=== PATIENT | female | born 1955 | race Caucasian/White ===

== ENCOUNTER 2019-02-12 08:11 | Emergency (ER) | payer MEDICARE, OTHER ==
[2019-02-12 08:46] LABS: ABSOLUTE BASOPHILS # (AUTO) 0.1 10^3/uL (0.0-0.2); ABSOLUTE EOSINOPHILS # (AUTO) 0.2 10^3/uL (0.0-0.6); ABSOLUTE LYMPHOCYTES (AUTO) 3.1 10^3/uL (0.5-4.7); ABSOLUTE MONOCYTES (AUTO) 0.7 10^3/uL (0.1-1.4); ABSOLUTE NEUT (AUTO) 5.5 10^3/uL (1.7-8.2); BASOPHILS % (AUTO) 0.7 % (0-2); EOSINOPHILS % (AUTO) 2.4 % (0-6); HEMATOCRIT 42.7 % (36.0-47.0); HEMOGLOBIN 14.5 g/dL (12.0-15.5); LYMPHOCYTES % (AUTO) 32.8 % (13-45); MEAN CORPUSCULAR HEMOGLOBIN 30.3 pg (27.0-33.4); MEAN CORPUSCULAR HGB CONC 33.9 g/dL (32.0-36.0); MEAN CORPUSCULAR VOLUME 89 fl (80-97); MONOCYTES % (AUTO) 6.8 % (3-13); PLATELET COUNT 189 10^3/uL (150-450); RED BLOOD COUNT 4.78 10^6/uL (3.72-5.28); RED CELL DISTRIBUTION WIDTH 14.6 % (11.5-14.0); SEGMENTED NEUTROPHILS % (AUTO) 57.3 % (42-78); TOTAL CELLS COUNTED % (AUTO) 100 %; WHITE BLOOD COUNT 9.6 10^3/uL (4.0-10.5)
[2019-02-12 09:09] LABS: ALBUMIN 3.8 g/dL (3.5-5.0); ALKALINE PHOSPHATASE 157 U/L (38-126); ANION GAP 10 (5-19); ASPARTATE AMINO TRANSFERASE 36 U/L (14-36); BILIRUBIN,DIRECT 0.2 mg/dL (0.0-0.4); BILIRUBIN,TOTAL 0.5 mg/dL (0.2-1.3); BLOOD UREA NITROGEN 19 mg/dL (7-20); CALCIUM 9.3 mg/dL (8.4-10.2); CARBON DIOXIDE 25 mmol/L (22-30); CHLORIDE 105 mmol/L (98-107); GLUCOSE 125 mg/dL (75-110); POTASSIUM 4.2 mmol/L (3.6-5.0)
[2019-02-12] MEDS ORDERED: LIDOCAINE 2% VISCOUS SOLN 20 ML UDCUP PO ONE ×2 (09:34→11:46)
[2019-02-12] MEDS ORDERED: MAG HYDROX/AL HYDROX/SIMETH SUSP 30 ML UDCUP PO ONE ×2 (09:34→11:46)
--- NOTE | 2019-02-12 09:36 | ER Document Report ---
ED Medical Screen (RME) - General Chief Complaint: Abdominal Pain Stated Complaint: GASTRIC Time Seen by Provider: 02/12/19 09:26 Information source: Patient Notes: Patient presents complaining of epigastric pain that radiates through to her back that occurred on 2 separate episodes this morning after standing. Patient states that when she would change position but the pain would improve. Patient states that when she stands she would get lightheaded. Patient reports cough for the past several weeks. No nausea or vomiting. Patient denies any epigastric or chest pain symptoms at this time. Patient states she did take 4 baby aspirin at home and the pain started to improve. Patient does report [place]. hx: Diabetes, hypertension, DVT, hypothyroid I have greeted and performed a rapid initial assessment of this patient. A comprehensive ED assessment and evaluation of the patient, analysis of test results and completion of the medical decision making process will be conducted by additional ED providers. - Related Data Allergies/Adverse Reactions: No Known Allergies Allergy (Verified 02/12/19 08:23) Physical Exam - Vital signs Vitals: Temp Pulse Resp BP Pulse Ox 97.8 F 82 19 124/56 L 97 02/12/19 08:22 02/12/19 08:22 02/12/19 08:22 02/12/19 08:22 02/12/19 08:22 - Cardiovascular Rhythm: Regular Heart sounds: S1 appreciated, S2 appreciated - Abdominal Inspection: Morbidly Obese Tenderness: Nontender Course - Vital Signs Vital signs: Temp Pulse Resp BP Pulse Ox 97.8 F 82 19 124/56 L 97 02/12/19 08:22 02/12/19 08:22 02/12/19 08:22 02/12/19 08:22 02/12/19 08:22 - Laboratory Result Diagrams: 02/12/19 08:20 02/12/19 08:20 Laboratory results interpreted by me: 02/12/19 02/12/19 08:20 08:20 RDW 14.6 H Glucose 125 H Alkaline Phosphatase 157 H
--- NOTE | 2019-02-12 10:05 | RADIOLOGY REPORT (SQ) ---
EXAM DESCRIPTION: CHEST 2 VIEWS COMPLETED DATE/TIME: 02/12/2019 9:58 am REASON FOR STUDY: epig pain, dizziness COMPARISON: None. EXAM PARAMETERS: NUMBER OF VIEWS: two views TECHNIQUE: Digital Frontal and Lateral radiographic views of the chest acquired. RADIATION DOSE: NA LIMITATIONS: none FINDINGS: LUNGS AND PLEURA: No opacities, masses or pneumothorax. No pleural effusion. MEDIASTINUM AND HILAR STRUCTURES: No masses or contour abnormalities. HEART AND VASCULAR STRUCTURES: Heart normal size. No evidence for failure. BONES: No acute findings. HARDWARE: None in the chest. OTHER: No other significant finding. IMPRESSION: NO ACUTE RADIOGRAPHIC FINDING IN THE CHEST. TECHNICAL DOCUMENTATION: JOB ID: [id number] [facility]- All Rights Reserved Reading location - IP/workstation name: [email or web address]
[2019-02-12 10:14] LABS: INTERNATIONAL RATION (INR) 1.84; PROTHROMBIN TIME 21.5 SEC (11.4-15.4)
--- NOTE | 2019-02-12 10:29 | ER Document Report ---
ED General - General Chief Complaint: Abdominal Pain Stated Complaint: GASTRIC Time Seen by Provider: 02/12/19 09:26 Primary Care Provider: SHANE KELLOGG MD [ACTIVE STAFF] - Follow up as needed EVANS FREITAS MD [ACTIVE STAFF] - Follow up as needed TRAVEL OUTSIDE OF THE [place] IN LAST 30 DAYS: No - HPI Notes: Patient is a 64-year-old female with a history of hypertension, diabetes, hypothyroidism, GERD, cholecystectomy, appendectomy, tubal ligation, obesity, DVT x2 with most recent 5 years ago and on Coumadin who presents complaining of sharp epigastric pain that occurred twice this morning that radiated to her back. Patient states that when she stood up and noticed a sharp pain to her epigastrium that resolved when she sat back down. She then tried to stand up again and noticed the same pain which then resolved on its own thereafter. Patient states that they only lasted for a brief time and were resolved when she changed positions. Patient states that since then she has been asymptomatic. She has been able to eat and drink without difficulty. She is urinating normally and having normal bowel movements. Denies drug allergies. No recent illness. No melena or hematochezia. Denies any headache, fever, neck pain, URI, sore throat, chest pain, palpitations, syncope, cough, shortness of breath, wheeze, dyspnea, nausea/vomiting/diarrhea, urinary retention, dysuria, hematuria, loss of control of bowel or bladder, numbness/tingling, saddle anesthesia, muscle paralysis/weakness, or rash. - Related Data Allergies/Adverse Reactions: No Known Allergies Allergy (Verified 02/12/19 08:23) Past Medical History - General Information source: Patient - Social History Smoking Status: Current Every Day Smoker Family History: Reviewed & Not Pertinent Patient has suicidal ideation: No Patient has homicidal ideation: No Review of Systems - Review of Systems -: Yes All other systems reviewed and negative Physical Exam - Vital signs Vitals: Temp Pulse Resp BP Pulse Ox 97.8 F 82 19 124/56 L 97 02/12/19 08:22 02/12/19 08:22 02/12/19 08:22 02/12/19 08:22 02/12/19 08:22 - Notes Notes: PHYSICAL EXAMINATION: GENERAL: Well-appearing, well-nourished and in no acute distress. Obese. HEAD: Atraumatic, normocephalic. EYES: Pupils equal round and reactive to light, extraocular movements intact, sclera anicteric, conjunctiva are normal. ENT: Nares patent and without discharge. oropharynx clear without exudates. No tonsilar hypertrophy or erythema. Moist mucous membranes. NECK: Normal range of motion, supple without lymphadenopathy LUNGS: Breath sounds clear to auscultation bilaterally and equal. No wheezes rales or rhonchi. HEART: Regular rate and rhythm without murmurs, rubs, gallops. ABDOMEN: Soft, nontender, nondistended abdomen. No guarding, no rebound. Normal bowel sounds present. No CVA tenderness bilaterally. Ortega neg. No lower abd tenderness. No obvious pulsatile mass noted. Musculoskeletal: FROM to passive/active. Strength 5+/5. Extremities: No cyanosis, clubbing, or edema b/l. Peripheral pulses 2+ and equal b/l. Capillary refill less than 3 seconds. No calf tenderness. NEUROLOGICAL: Cranial nerves grossly intact. Normal speech, normal gait. Normal sensory, motor exams PSYCH: Normal mood, normal affect. SKIN: Warm, Dry, normal turgor, no rashes or lesions noted. Course - Re-evaluation Re-evalutation: 02/12/19 Patient is an afebrile, well-hydrated, 64-year-old female who presents with resolved short incidence of epigastric abdominal pain x2 this morning and acute UTI. Vitals are acceptable without significant tachycardia, tachypnea, or hypoxia. PE is otherwise unremarkable. Patient's abdomen is soft and nontender throughout. Lungs are clear to auscultation bilaterally. The pains were there when she stood up and resolved when she change positions/sat back down. They have not recurred since then. Labs are unremarkable. Chest x-ray unremarkable. I did review possible CT imaging and/or ultrasound to further evaluate which patient declined at this time. Risk benefits reviewed. Patient aware of her decision. Pt has not had any CP, sob, or dyspnea. Low suspicion/risk for ACS, PE, pneumothorax, pericarditis, obvious dissection, acute appendicitis, bowel obstruction, acute cholecystitis, acute cholangitis, perforated diverticulitis, incarcerated hernia, pancreatitis, perforated ulcer, peritonitis, sepsis, pelvic inflammatory disease, tubo-ovarian abscess, ovarian torsion, or other systemic emergent condition at this time. Patient is aware that her condition can change from initial presentation and she needs to monitor symptoms closely and seek medical attention if any acute changes. Pt declined GI cocktail/meds as she has been asymptomatic since prior to arrival. Pt feeling better and would like to go home. Conservative measures otherwise for symptoms. Recheck with OBGYN in 1-2 days. Recheck with your PCM in 2-3 days. Consider consult with a visitor service assistant. Return to the ED with any worsening/concerning symptoms otherwise as reviewed in discharge. Patient is in agreement. - Vital Signs Vital signs: Temp Pulse Resp BP Pulse Ox 97.9 F 72 16 131/74 H 96 02/12/19 10:50 02/12/19 10:50 02/12/19 10:50 02/12/19 10:50 02/12/19 10:50 - Laboratory Result Diagrams: 02/12/19 08:20 02/12/19 08:20 Laboratory results interpreted by me: 02/12/19 02/12/19 02/12/19 08:20 08:20 08:20 RDW 14.6 H PT 21.5 H Glucose 125 H Alkaline Phosphatase 157 H Urine Blood Urine Nitrite Urine Urobilinogen Ur Leukocyte Esterase 02/12/19 10:03 RDW PT Glucose Alkaline Phosphatase Urine Blood SMALL H Urine Nitrite POSITIVE H Urine Urobilinogen 4.0 H Ur Leukocyte Esterase LARGE H Discharge - Discharge Clinical Impression: Epigastric pain, Acute UTI (urinary tract infection) Condition: Stable Disposition: HOME, SELF-CARE Instructions: Abdominal Pain ([facility]), Cephalexin ([facility]) Additional Instructions: Maintain adequate fluid and food intake Opdyke diet (B.R.A.T.) Bananas, rice, apples, toast, avoid spices, etc tylenol if needed Monitor for any worsening symptoms Make sure you are staying hydrated enough to urinate and have normal BM's Recheck with your PCM in 2-3 days Consider consult with Gastroenterology for ongoing/worsening symptoms Return to the ED with any worsening symptoms and/or development of fever, headache, chest pain, palpitations, syncope, shortness of breath, trouble breathing, abdominal pain, n/v/d, blood in stool/urine, weakness, or other worsening symptoms that are concerning to you. Prescriptions: Cephalexin Monohydrate [Keflex 500 mg Capsule] 500 mg PO TID #21 capsule Referrals: EVANS FREITAS MD [ACTIVE STAFF] - Follow up as needed SHANE KELLOGG MD [ACTIVE STAFF] - Follow up as needed
[2019-02-12 10:35] LABS: APPEARANCE,URINE CLOUDY; BILIRUBIN,URINE NEGATIVE (NEGATIVE); COLOR,URINE AMBER; GLUCOSE, URINE NEGATIVE (NEGATIVE); KETONES,URINE NEGATIVE (NEGATIVE); LEUKOCYTE ESTERASE,URINE LARGE (NEGATIVE); NITRITE,URINE POSITIVE (NEGATIVE); PROTEIN,URINE NEGATIVE (NEGATIVE); URINE SPECIFIC GRAVITY 1.023
[2019-02-12 10:52] VITALS: BP 131/74
[2019-02-12] MEDS ORDERED: ONDANSETRON ODT 4 MG TAB (6 TAB/ER DISP) PO PRN (11:46)
[2019-02-12] MEDS ORDERED: METOCLOPRAMIDE HCL ORAL SOLN 10 MG/10 ML UDCUP PO ONE (11:46)
--- NOTE | 2019-02-12 14:41 | EKG REPORT ---
SEVERITY:- ABNORMAL ECG - SINUS RHYTHM RBBB AND LAFB : Confirmed by: Reba Rose MD 12-Feb-2019 14:40:21
== END 2019-02-12 11:57 | disposition home or self-care (01) ==
LOC: ER 08:11
DX: N39.0 Urinary tract infection, site not specified (principal); R10.13 Epigastric pain; F17.200 Nicotine dependence, unspecified, uncomplicated; I10 Essential (primary) hypertension; E11.9 Type 2 diabetes mellitus without complications; E03.9 Hypothyroidism, unspecified; Z90.49 Acquired absence of other specified parts of digestive tract; Z98.51 Tubal ligation status; Z86.718 Personal history of other venous thrombosis and embolism
CPT/HCPCS: 93005; 36415; 83690; 85025; 85610; 80053; 81001; 84484; 71046; 93010; J3490; 87086; 87088; 99284